=== PATIENT | female | born 1960 | race Hispanic/Latino ===

== ENCOUNTER 2016-09-25 12:19 | Emergency (ER) | payer SELFPAY ==
[2016-09-25] MEDS ORDERED: NACL 0.9% 1000 ML 1,000 ML IV ONE (12:56)
[2016-09-25] MEDS ORDERED: ZOFRAN IV ONE (12:57)
[2016-09-25] MEDS ORDERED: ATIVAN IV ONE (13:02)
--- NOTE | 2016-09-25 13:02 | Emergency Department Report ---
ED Seizure HPI - General Chief Complaint: Headache Stated Complaint: SEIZURE Time Seen by Provider: 09/25/16 12:41 Source: EMS Mode of arrival: Stretcher Limitations: Altered Mental Status - History of Present Illness Initial Comments: mother Stated there are at the bank, the patient is started having seizure, patient does have history of seizure. Also complaining of headache MD Complaint: seizure -: This morning Description of Episode: loss of consciousness, tonic-clonic movement, post- event confusion Witnessed:: Yes Trauma: No Seizure History: known seizure disorder Possible Precipitating Event: none Associated Symptoms: denies: chest pain, confusion, cough, fever/chills, loss of appetite, shortness of breath - Related Data Home Medications Medication Instructions Recorded Confirmed Last Taken Atorvastatin Calcium [Lipitor] 40 mg PO HS 10/29/13 02/03/15 03/20/14 40mg Citalopram [Celexa] 40 mg PO QDAY 10/29/13 02/03/15 03/20/14 40mg Ergocalciferol (Vitamin D2) 50,000 unit PO QWEEK 10/29/13 02/03/15 Unknown [Calciferol] Gabapentin [Neurontin] 600 mg PO TID 10/29/13 02/03/15 03/20/14 600mg Tizanidine HCl [tiZANidine] 4 mg PO BID PRN 10/29/13 02/03/15 03/20/14 4mg Divalproex ER [Depakote ER] 500 mg PO BID 02/03/15 02/03/15 Unknown Fludrocortisone [Florinef] 0.1 mg PO QDAY 02/03/15 02/03/15 Unknown HYDROcodone/APAP 5-325 [Buckeye 1 each PO Q8H PRN 02/03/15 02/03/15 Unknown 5-325 mg TAB] Lactulose 10 gm PO DAILY PRN 02/03/15 02/03/15 Unknown Alendronate Sodium [Fosamax] 70 mg PO QWEEK 02/04/15 02/04/15 Unknown Fluticasone [Flonase] 1 spray NS QDAY 02/04/15 02/04/15 Unknown Previous Rx's Medication Instructions Recorded Last Taken Type Pantoprazole [Protonix TAB] 40 mg PO BID #60 tablet 11/04/13 03/20/14 Rx 40mg Budesoni/Formotero 160-4.5(Nf) 1 puff IH BID 30 Days 02/25/15 Unknown Rx [Symbicort 160-4.5 (Nf)] Clopidogrel [Plavix] 75 mg PO QDAY #30 tablet 02/25/15 Unknown Rx Gabapentin [Neurontin] 600 mg PO Q8H #30 tablet 09/25/16 Unknown Rx Allergies Allergy/AdvReac Type Severity Reaction Status Date / Time aspirin Allergy Unknown Unknown Verified 02/03/15 15:47 adhesive Allergy Unknown Verified 02/03/15 15:47 Penicillins Allergy Rash Verified 02/03/15 15:47 ED Review of Systems ROS: Stated complaint: SEIZURE Other details as noted in HPI Comment: All other systems reviewed and negative Constitutional: denies: chills, fever Respiratory: denies: shortness of breath Cardiovascular: denies: chest pain Gastrointestinal: nausea. denies: abdominal pain, vomiting, diarrhea Neurological: headache. denies: weakness, paresthesias ED Past Medical Hx - Past Medical History Hx Hypertension: Yes Hx CVA: Yes Hx Heart Attack/AMI: No Hx Congestive Heart Failure: No Hx Diabetes: No Hx Deep Vein Thrombosis: No Hx Pulmonary Embolism: No Hx Liver Disease: No Hx Renal Disease: No Hx Sickle Cell Disease: No Hx Arthritis: No Hx Headaches / Migraines: Yes Hx Seizures: Yes (tonic clonic) Hx Kidney Stones: No Hx Asthma: No Hx COPD: Yes Hx Tuberculosis: No Hx Dementia: No Hx HIV: No Additional medical history: hip replacement 2009 right, alzheimers. Anemia, syncope, recent admission. History of GI bleeding. - Surgical History Hx Coronary Stent: No Hx Open Heart Surgery: No Hx Pacemaker: No Hx Internal Defibrillator: No Hx Cholecystectomy: No Hx Appendectomy: No Hx Breast Surgery: No Additional Surgical History: R hip surgery 2009 - Social History Smoking Status: Never Smoker Substance Use Type: None - Medications Home Medications: Home Medications Medication Instructions Recorded Confirmed Last Taken Type Atorvastatin Calcium [Lipitor] 40 mg PO HS 10/29/13 02/03/15 03/20/14 History 40mg Citalopram [Celexa] 40 mg PO QDAY 10/29/13 02/03/15 03/20/14 History 40mg Ergocalciferol (Vitamin D2) 50,000 unit PO QWEEK 10/29/13 02/03/15 Unknown History [Calciferol] Gabapentin [Neurontin] 600 mg PO TID 10/29/13 02/03/15 03/20/14 History 600mg Tizanidine HCl [tiZANidine] 4 mg PO BID PRN 10/29/13 02/03/15 03/20/14 History 4mg Pantoprazole [Protonix TAB] 40 mg PO BID #60 tablet 11/04/13 02/03/15 03/20/14 Rx 40mg Divalproex ER [Depakote ER] 500 mg PO BID 02/03/15 02/03/15 Unknown History Fludrocortisone [Florinef] 0.1 mg PO QDAY 02/03/15 02/03/15 Unknown History HYDROcodone/APAP 5-325 [Buckeye 1 each PO Q8H PRN 02/03/15 02/03/15 Unknown History 5-325 mg TAB] Lactulose 10 gm PO DAILY PRN 02/03/15 02/03/15 Unknown History Alendronate Sodium [Fosamax] 70 mg PO QWEEK 02/04/15 02/04/15 Unknown History Fluticasone [Flonase] 1 spray NS QDAY 02/04/15 02/04/15 Unknown History Budesoni/Formotero 160-4.5(Nf) 1 puff IH BID 30 Days 02/25/15 Unknown Rx [Symbicort 160-4.5 (Nf)] Clopidogrel [Plavix] 75 mg PO QDAY #30 tablet 02/25/15 Unknown Rx Gabapentin [Neurontin] 600 mg PO Q8H #30 tablet 09/25/16 Unknown Rx ED Physical Exam - General Limitations: Altered Mental Status General appearance: in no apparent distress, postictal - Head Head exam: Present: atraumatic, normocephalic - Eye Eye exam: Present: normal appearance - ENT ENT exam: Present: normal exam, normal orophraynx - Neck Neck exam: Present: normal inspection, full ROM. Absent: tenderness, meningismus - Respiratory Respiratory exam: Present: normal lung sounds bilaterally. Absent: respiratory distress, wheezes, rhonchi, chest wall tenderness - Cardiovascular Cardiovascular Exam: Present: regular rate, normal rhythm, normal heart sounds - GI/Abdominal GI/Abdominal exam: Present: soft. Absent: distended, tenderness, guarding, rebound - Extremities Exam Extremities exam: Present: normal inspection. Absent: tenderness - Neurological Exam Neurological exam: Present: alert, oriented X3, CN II-XII intact - Skin Skin exam: Present: warm, normal color ED Course Vital Signs 09/25/16 12:38 Temperature 98.1 F Pulse Rate 92 H Blood Pressure 158/92 - Reevaluation(s) Reevaluation #1: 09/25/16 14:59 Patient instructed baseline she is alert and oriented 3 denied any headache no other complaint at this moment will discharge home to follow-up with her primary care physician. ED Medical Decision Making - Lab Data Result diagrams: 09/25/16 13:06 09/25/16 13:06 Critical care attestation.: If time is entered above; I have spent that time in minutes in the direct care of this critically ill patient, excluding procedure time. ED Disposition Clinical Impression: Seizure, Headache Disposition: DC-01 TO HOME OR SELFCARE Is pt being admited?: No Condition: Stable Prescriptions: Gabapentin [Neurontin] 600 mg PO Q8H #30 tablet Referrals: PRIMARY CARE, [Primary Care Provider] - 3-5 Days
[2016-09-25 13:23] LABS: Basophils % (Auto) 0.6 % (0.0-1.8); Eosinophils % (Auto) 0.5 % (0.0-4.3); Hemoglobin 10.8 gm/dl (10.1-14.3); Mean Corpuscular HGB Conc 33 % (30-34); Mean Corpuscular Hemoglobin 30 pg (28-32); Mean Corpuscular Volume 91 fl (79-97); Platelet Count 411 K/mm3 (140-440); Red Blood Count 3.61 M/mm3 (3.65-5.03); Red Cell Distribution Width 17.4 % (13.2-15.2); White Blood Count 8.1 K/mm3 (4.5-11.0)
[2016-09-25 13:33] LABS: INR 0.92 (0.87-1.13)
[2016-09-25 13:34] LABS: Partial Thromboplastin Time 30.9 Sec. (24.2-36.6)
[2016-09-25 13:42] LABS: Albumin 3.6 g/dL (3.9-5); Albumin/Globulin Ratio 0.9 %; BUN/Creatinine Ratio 9.16; Bilirubin,Total 0.3 mg/dL (0.1-1.2); Calcium 9.3 mg/dL (8.4-10.2); Chloride 95.9 mmol/L (98-107); Potassium 4.9 mmol/L (3.6-5.0); Total Protein 7.8 g/dL (6.3-8.2)
--- NOTE | 2016-09-25 14:17 | Cat Scan Report ---
CT HEAD WITHOUT CONTRAST INDICATION: Seizure. COMPARISON: 02/03/2015. FINDINGS: Noncontrast head CT again demonstrates symmetric, age-appropriate ventricles and sulci with mild periventricular hypodensities. Right greater than left old infarcts about the temporoparieto-occipital junctions again seen measuring up to 2.7 cm on the right, axial image 30, series 4. No definite acute infarct, hemorrhage, mass effect or midline shift. No abnormal extra axial fluid collections. Normal posterior fossa with preserved basilar cisterns. Small bilateral cerebellar lacunar infarcts again seen, measuring up to approximately 7 mm on the left, axial image 10. Symmetric eye globes. Leftward nasal septal bowing. Clear imaged paranasal sinuses and temporal bone/mastoid air cells, though right mastoid tip again noted not pneumatized. Left external auditory canal debris may be directly visualized. Intact calvarium and scalp. Numerous missing teeth and small radiopaque dental material anteriorly incidentally noted. CONCLUSION: No definite acute intracranial CT abnormality or significant interval change, as described. Thank you for the opportunity to participate in this patient's care.
--- NOTE | 2016-09-25 14:45 | XRay Report ---
CHEST 2 VIEWS INDICATION: Headache, altered mental status. COMPARISON: 02/17/2015 FINDINGS: PA and lateral chest radiographs demonstrate better inspiration with normal cardiomediastinal silhouette. Left midlung horizontal atelectasis or scarring with stable old healed multiple left rib deformities. Overall smaller left lung volume as compared to the right. No pleural effusions or CHF. Left hemidiaphragm slightly elevated. Demineralized bones with lower thoracic compression deformity suspected, also described on January [address] report. CONCLUSION: No significant acute chest process with findings, as above. Thank you for the opportunity to participate in this patient's care.
[2016-09-25 15:40] VITALS: BP 100/57
[2016-09-25 16:03] LABS: Urine Drugs of Abuse Note Disclamer
[2016-09-25 16:18] LABS: Bilirubin,Urine NEG (Negative); Blood,Urine NEG (Negative); Ketones,Urine NEG (Negative); Leukocyte Esterase,Urine NEG (Negative); Nitrite,Urine NEG (Negative); Protein,Urine <15 mg/dL mg/dL (Negative); RBC,Urine < 1.0 /HPF (0.0-6.0); Urobilinogen,Urine < 2.0 mg/dL (<2.0); WBC,Urine < 1.0 /HPF (0.0-6.0)
== END 2016-09-25 16:08 | disposition home or self-care (01) ==
LOC: ED 12:19
DX: R56.9 Unspecified convulsions (principal); R51 Headache; I10 Essential (primary) hypertension; J44.9 Chronic obstructive pulmonary disease, unspecified
CPT/HCPCS: 36415; 70450; 71020; 80053; 80307; 81001; 85025; 85610; 85730; 93005; 93010; 96361; 96374; 96375; 99285; J2060; J2405; J7030

== ENCOUNTER 2017-11-22 17:12 | Emergency (ER) | payer MEDICARE ==
[2017-11-22] MEDS ORDERED: ATIVAN IV ONE (17:55)
[2017-11-22] MEDS ORDERED: FIORICET PO ONE (17:55)
--- NOTE | 2017-11-22 18:00 | Emergency Department Report ---
HPI - General Chief Complaint: Seizure Time Seen by Provider: 11/22/17 17:49 - HPI HPI: Room 18 The patient is a 57-year-old female presenting with a chief complaint of seizure. The patient was walking out of a store with her mother when she fell and had a generalized tonic-clonic seizure. The mother reports the patient fell striking her head. Patient only complains of a headache and gives a score of 10/10. Patient denies any other complaints. Patient states she has been compliant with her Depakote. The patient's last seizure before today occurred in July 2017. Location: Head, [employer] Duration: [See above] Quality: Headache Severity: 10/10 Modifying factors: [see above] Context: [see above] Mode of transportation: [not driving] ED Past Medical Hx - Past Medical History Previous Medical History?: Yes Hx Hypertension: Yes Hx CVA: Yes Hx Headaches / Migraines: Yes Hx Seizures: Yes (tonic clonic) Hx COPD: Yes Additional medical history: hip replacement 2009 right, alzheimers. Anemia, syncope, recent admission. History of GI bleeding. - Surgical History Past Surgical History?: Yes Additional Surgical History: R hip surgery 2008 - Family History Family history: no significant - Social History Smoking Status: Former Smoker (none 10 years) Substance Use Type: None - Medications Home Medications: Home Medications Medication Instructions Recorded Confirmed Last Taken Type Acetaminophen [Tylenol] 500 mg PO Q6HR 11/14/16 11/14/16 Unknown History Alendronate Sodium [Fosamax] 70 mg PO QWEEK 11/14/16 11/14/16 Unknown History Erythromycin Base [Erythromycin] 250 mg PO TID 11/14/16 11/14/16 Unknown History Furosemide [Lasix TAB] 40 mg PO QDAY 11/14/16 11/14/16 Unknown History Gabapentin [Neurontin] 600 mg PO Q8H 11/14/16 11/14/16 Unknown History Lisinopril [Zestril TAB] 40 mg PO QDAY 11/14/16 11/14/16 Unknown History Loratadine [Claritin] 10 mg PO DAILY 11/14/16 11/14/16 Unknown History Meloxicam 15 mg PO QDAY 11/14/16 11/14/16 Unknown History Metoprolol Tartrate 25 mg PO BID 11/14/16 11/14/16 Unknown History Potassium Chloride [K-Tab ER] 10 meq PO QDAY 11/14/16 11/14/16 Unknown History SUMAtriptan succinate [SUMAtriptan 25 mg PO QDAY 11/14/16 11/14/16 Unknown History Succinate] amLODIPine [Norvasc] 5 mg PO DAILY 11/14/16 11/14/16 Unknown History AtorvaSTATin [Lipitor] 40 mg PO QHS #30 tablet 11/25/16 Unknown Rx Bisacodyl [Dulcolax suppos] 10 mg [place] QDAY PRN #30 supp.rect 11/25/16 Unknown Rx Citalopram [Celexa] 40 mg PO QDAY #30 tablet 11/25/16 Unknown Rx Clopidogrel Bisulfate [Plavix] 75 mg PO QDAY #30 tablet 11/25/[address] [Depakote Dr] 500 mg PO BID #60 tablet 11/25/16 Unknown Rx Erythromycin Base [Lito-Tab] 250 mg PO TID #90 tablet 11/25/16 Unknown Rx Ferrous Sulfate [Feosol 325 MG tab] 325 mg PO BID #60 tablet 11/25/16 Unknown Rx Fluticasone [Flonase] 1 spray NS QDAY #1 bottle 11/25/16 Unknown Rx Gabapentin [Neurontin] 600 mg PO Q8H #90 capsule 11/25/16 Unknown Rx Pantoprazole [Protonix TAB] 40 mg PO BID #60 tablet 11/25/16 Unknown Rx oxyCODONE /ACETAMINOPHEN [Percocet 1 tab PO Q6H PRN #30 tablet 11/25/16 Unknown Rx 5/325 mg] Butalb/Acetamin/Caff 50-325-40 1 tab PO Q8HR PRN #10 tablet 11/22/17 Unknown Rx [Fioricet] ED Review of Systems ROS: Stated complaint: SEIZURE Other details as noted in HPI Constitutional: no symptoms reported Eyes: denies: eye pain ENT: denies: throat pain Respiratory: no symptoms reported Cardiovascular: denies: chest pain Endocrine: no symptoms reported Gastrointestinal: denies: abdominal pain Genitourinary: denies: dysuria Musculoskeletal: denies: back pain Neurological: headache, other (seizure) Physical Exam - Physical Exam Vital Signs: Vital Signs 11/22/17 17:38 Temperature 98.3 F Pulse Rate 66 Respiratory 16 Rate Blood Pressure 149/63 O2 Sat by Pulse 99 Oximetry Physical Exam: GENERAL: The patient is well-developed well-nourished female lying on stretcher not appearing to be in acute distress. [] HEENT: Normocephalic. Atraumatic. Extraocular motions are intact. Patient has moist mucous membranes. NECK: Supple. Trachea midline CHEST/LUNGS: Clear to auscultation. There is no respiratory distress noted. HEART/CARDIOVASCULAR: Regular. There is no tachycardia. There is no gallop rub or murmur. ABDOMEN: Abdomen is soft, nontender. Patient has normal bowel sounds. There is no abdominal distention. SKIN: There is no rash. There is no edema. There is no diaphoresis. NEURO: The patient is awake, alert, and oriented. The patient is cooperative. The patient has no focal neurologic deficits. The patient has normal speech. Cranial nerves II through XII grossly intact, no drift MUSCULOSKELETAL:There is no evidence of acute injury. ED Course Vital Signs 11/22/17 17:38 Temperature 98.3 F Pulse Rate 66 Respiratory 16 Rate Blood Pressure 149/63 O2 Sat by Pulse 99 Oximetry ED Medical Decision Making - Lab Data Result diagrams: 11/22/17 17:48 11/22/17 17:48 Laboratory Tests 11/22/17 11/22/17 11/22/17 17:48 17:48 18:12 WBC 5.2 RBC 3.42 L Hgb 10.5 Hct 31.9 MCV 94 MCH 31 MCHC 33 RDW 17.5 H Plt Count 148 Sodium 134 L Potassium 4.3 Chloride 102.9 Carbon Dioxide 22 Anion Gap 13 BUN 13 Creatinine 0.8 Estimated GFR > 60 BUN/Creatinine Ratio 16 Glucose 83 Calcium 8.4 Valproic Acid 75.2 - Radiology Data Radiology results: report reviewed (CT head, CT cervical spine), image reviewed (CT head, CT cervical spine) [facility] [address] [place] [address] Cat Scan Report Signed Patient: PATI GIBSON MR#: [id number] : 1959 Acct:[id number] Age/Sex: 57 / F ADM Date: 11/22/17 Loc: ED Attending Dr: Ordering Physician: FRANCESCA SANCHEZ MD Date of Service: 11/22/17 Procedure(s): CT head/brain wo con Accession Number(s): [id number] cc: FRANCESCA SANCHEZ MD FINAL REPORT EXAM: CT HEAD/BRAIN WO CON HISTORY: seizure; s/p fall w/ c/o headache TECHNIQUE : 2.5 millimeter axial images from the skullbase to the vertex. Comparison: Head CT dated September 25, 2016 FINDINGS: There is no evidence of an acute intracranial process, intracranial hemorrhage or mass effect. There are chronic infarcts in the right parietal lobe, left occipital lobe and left cerebellum similar in appearance to the previous study. The ventricles are normal size. The visualized portions of the orbits, paranasal and mastoid sinuses are unremarkable. There is no evidence of fracture. IMPRESSION: 1. No evidence of an acute intracranial process, intracranial hemorrhage or mass effect. 2. No evidence of fracture. Transcribed By: ED Dictated By: FRED CASTANEDA MD Electronically Authenticated By: FRED CASTANEDA MD Signed Date/Time: 03/11 DD/ 39 TD/TT: 11/22/172039 [place] [address] Cat Scan Report Signed Patient: PATI GIBSON MR#: [id number] : 1959 Acct:[id number] Age/Sex: 57 / F ADM Date: 11/22/17 Loc: ED Attending Dr: Ordering Physician: FRANCESCA SANCHEZ MD Date of Service: 11/22/17 Procedure(s): CT cervical spine wo con Accession Number(s): [id number] cc: FRANCESCA SANCHEZ MD FINAL REPORT EXAM: CT CERVICAL SPINE WO CON HISTORY: seizure; s/p fall w/ c/o headache TECHNIQUE: Axial helical imaging through the cervical spine with sagittal and coronal reformatted images obtained. Comparison: CT cervical spine dated February 03, 2015 FINDINGS: There straightening of the normal lordotic curve of the cervical spine. The vertebral heights are maintained. There is loss of height of the C6-C7 disc with associated degenerative endplate change. There is multiple level degenerative facet change. There is no evidence of significant bony canal stenosis. Visualization detail of the contents of the cervical canal is limited by artifact. There is no evidence of fracture or subluxation. The paraspinous soft tissues are unremarkable. There is atherosclerotic vascular calcification at the carotid bifurcation bilaterally. IMPRESSION: 1. No evidence of fracture or subluxation. 2. Cervical spondylosis. 3. Atherosclerotic vascular calcification carotid bifurcation. Transcribed By: ED Dictated By: FRED CASTANEDA MD Electronically Authenticated By: FRED CASTANEDA MD Signed Date/Time: 11/22/172044 DD/ 44 TD/TT: 11/22/172044 - Differential Diagnosis seizure, closed head injury, ICH Critical care attestation.: If time is entered above; I have spent that time in minutes in the direct care of this critically ill patient, excluding procedure time. ED Disposition Clinical Impression: Seizure, Closed head injury Disposition: TO HOME OR SELFCARE Is pt being admited?: No Does the pt Need Aspirin: No Condition: Stable Instructions: Epilepsy (ED), Minor Head Injury (ED) Additional Instructions: Return to the emergency department immediately should you develop worsening symptoms, fever, inability to tolerate food or liquid or any other concerns. Prescriptions: Butalb/Acetamin/Caff 50-325-40 [Fioricet] 1 tab PO Q8HR PRN #10 tablet PRN Reason: Headache Referrals: PRIMARY CAREMD [Primary Care Provider] - 3-5 Days Time of Disposition: 21:02
[2017-11-22 18:52] LABS: Hematocrit 31.9 % (30.3-42.9); Hemoglobin 10.5 gm/dl (10.1-14.3); Mean Corpuscular HGB Conc 33 % (30-34); Mean Corpuscular Hemoglobin 31 pg (28-32); Mean Corpuscular Volume 94 fl (79-97); Platelet Count 148 K/mm3 (140-440); Red Blood Count 3.42 M/mm3 (3.65-5.03); Red Cell Distribution Width 17.5 % (13.2-15.2)
[2017-11-22 19:18] LABS: BUN/Creatinine Ratio 16; Blood Urea Nitrogen 13 mg/dL (7-17); Calcium 8.4 mg/dL (8.4-10.2); Hemolysis Index 2
--- NOTE | 2017-11-22 20:41 | Cat Scan Report ---
FINAL REPORT EXAM: CT HEAD/BRAIN WO CON HISTORY: seizure; s/p fall w/ c/o headache TECHNIQUE: 2.5 millimeter axial images from the skullbase to the vertex. Comparison: Head CT dated September 25, 2016 FINDINGS: There is no evidence of an acute intracranial process, intracranial hemorrhage or mass effect. There are chronic infarcts in the right parietal lobe, left occipital lobe and left cerebellum similar in appearance to the previous study. The ventricles are normal size. The visualized portions of the orbits, paranasal and mastoid sinuses are unremarkable. There is no evidence of fracture. IMPRESSION: 1. No evidence of an acute intracranial process, intracranial hemorrhage or mass effect. 2. No evidence of fracture.
--- NOTE | 2017-11-22 20:46 | Cat Scan Report ---
FINAL REPORT EXAM: CT CERVICAL SPINE WO CON HISTORY: seizure; s/p fall w/ c/o headache TECHNIQUE: Axial helical imaging through the cervical spine with sagittal and coronal reformatted images obtained. Comparison: CT cervical spine dated February 03, 2015 FINDINGS: There straightening of the normal lordotic curve of the cervical spine. The vertebral heights are maintained. There is loss of height of the C6-C7 disc with associated degenerative endplate change. There is multiple level degenerative facet change. There is no evidence of significant bony canal stenosis. Visualization detail of the contents of the cervical canal is limited by artifact. There is no evidence of fracture or subluxation. The paraspinous soft tissues are unremarkable. There is atherosclerotic vascular calcification at the carotid bifurcation bilaterally. IMPRESSION: 1. No evidence of fracture or subluxation. 2. Cervical spondylosis. 3. Atherosclerotic vascular calcification carotid bifurcation.
[2017-11-22 21:04] VITALS: BP 127/64
== END 2017-11-22 21:35 | disposition home or self-care (01) ==
LOC: ED 17:12
DX: R56.9 Unspecified convulsions (principal); S09.90XA Unspecified injury of head, initial encounter; I10 Essential (primary) hypertension; G43.909 Migraine, unspecified, not intractable, without status migrainosus; Z86.73 Personal history of transient ischemic attack (TIA), and cerebral infarction without residual deficits; J44.9 Chronic obstructive pulmonary disease, unspecified; Z87.891 Personal history of nicotine dependence; Z88.6 Allergy status to analgesic agent; Z88.0 Allergy status to penicillin; Z88.8 Allergy status to other drugs, medicaments and biological substances; Z91.048 Other nonmedicinal substance allergy status; W01.0XXA Fall on same level from slipping, tripping and stumbling without subsequent striking against object, initial encounter; Y93.89 Activity, other specified; Y92.512 Supermarket, store or market as the place of occurrence of the external cause; Y99.8 Other external cause status
CPT/HCPCS: 36415; 70450; 72125; 80048; 80164; 85027; 96374; 99285; J2060

== ENCOUNTER 2018-05-23 13:37 | Emergency (ER) | payer MEDICARE ==
[2018-05-23] MEDS ORDERED: KEPPRA 1,000 MG/NS 0.75% 100ML 1,000 MG/100 ML BAG IV ONE (16:12)
--- NOTE | 2018-05-23 16:17 | Emergency Department Report ---
HPI - General Chief Complaint: Seizure Time Seen by Provider: 05/23/18 16:11 - HPI HPI: 58-year-old -[place] female presents to the emergency department via EMS from home after she had a witnessed seizure about 30 minutes prior to arrival. Patient does have a seizure history and says that her last seizure may have been a few days ago. She is unsure of the name of the medication she takes for her seizures but says that she takes them compliantly. Previous records list this medication as Depakote. The patient was trying to take care of her mother who was difficult to arouse and was having some type of unresponsive episode and the mother is currently being seen here as a patient in a separate room. The patient called one of her neighbors to come over and assist her with her mother and this neighbor's who witnessed the patient's seizure. She has a history of tonic clonic seizures. She also has a history of a previous TIA, migraine headaches, hypertension, panic attacks and questionable COPD. Patient's primary care is [facility]. ED Past Medical Hx - Past Medical History Previous Medical History?: Yes Hx Hypertension: Yes Hx CVA: Yes Hx Heart Attack/AMI: No Hx Congestive Heart Failure: No Hx Diabetes: No Hx Deep Vein Thrombosis: No Hx Pulmonary Embolism: No Hx Liver Disease: No Hx Renal Disease: No Hx Sickle Cell Disease: No Hx Arthritis: No Hx Headaches / Migraines: Yes Hx Seizures: Yes (tonic clonic) Hx Kidney Stones: No Hx Psychiatric Treatment: Yes (panic attacks) Hx Asthma: No Hx COPD: Yes Hx Tuberculosis: No Hx Dementia: No Hx HIV: No Additional medical history: hip replacement 2009 right, alzheimers. Anemia, syncope, recent admission. History of GI bleeding - Surgical History Past Surgical History?: Yes Hx Coronary Stent: No Hx Open Heart Surgery: No Hx Pacemaker: No Hx Internal Defibrillator: No Hx Cholecystectomy: No Hx Appendectomy: No Hx Breast Surgery: No Additional Surgical History: R hip surgery 2009 - Social History Smoking Status: Former Smoker Substance Use Type: None - Medications Home Medications: Home Medications Medication Instructions Recorded Confirmed Last Taken Type Acetaminophen [Tylenol] 500 mg PO Q6HR 11/14/16 05/23/18 Unknown History Alendronate Sodium [Fosamax] 70 mg PO QWEEK 11/14/16 05/23/18 Unknown History Erythromycin Base [Erythromycin] 250 mg PO TID 11/14/16 05/23/18 Unknown History Furosemide [Lasix TAB] 40 mg PO QDAY 11/14/16 05/23/18 Unknown History Gabapentin [Neurontin] 600 mg PO Q8H 11/14/16 05/23/18 Unknown History Lisinopril [Zestril TAB] 40 mg PO QDAY 11/14/16 05/23/18 Unknown History Loratadine [Claritin] 10 mg PO DAILY 11/14/16 05/23/18 Unknown History Meloxicam 15 mg PO QDAY 11/14/16 05/23/18 Unknown History Metoprolol Tartrate 25 mg PO BID 11/14/16 05/23/18 Unknown History Potassium Chloride [K-Tab ER] 10 meq PO QDAY 11/14/16 05/23/18 Unknown History SUMAtriptan succinate [SUMAtriptan 25 mg PO QDAY 11/14/16 05/23/18 Unknown History Succinate] amLODIPine [Norvasc] 5 mg PO DAILY 11/14/16 05/23/18 Unknown History AtorvaSTATin [Lipitor] 40 mg PO QHS #30 tablet 11/25/16 05/23/18 Unknown Rx Bisacodyl [Dulcolax suppos] 10 mg CA QDAY PRN #30 supp.rect 11/25/16 05/23/18 Unknown Rx Citalopram [Celexa] 40 mg PO QDAY #30 tablet 11/25/16 05/23/18 Unknown Rx Clopidogrel Bisulfate [Plavix] 75 mg PO QDAY #30 tablet 11/25/16 05/23/18 Unknown Rx Divalproex [Shelby Noel] 500 mg PO BID #60 tablet 11/25/16 05/23/18 Unknown Rx Erythromycin Base [Lito-Tab] 250 mg PO TID #90 tablet 11/25/16 05/23/18 Unknown Rx Ferrous Sulfate [Feosol 325 MG tab] 325 mg PO BID #60 tablet 11/25/16 05/23/18 Unknown Rx Fluticasone [Flonase] 1 spray NS QDAY #1 bottle 11/25/16 05/23/18 Unknown Rx Gabapentin [Neurontin] 600 mg PO Q8H #90 capsule 11/25/16 05/23/18 Unknown Rx Pantoprazole [Protonix TAB] 40 mg PO BID #60 tablet 11/25/16 05/23/18 Unknown Rx oxyCODONE /ACETAMINOPHEN [Percocet 1 tab PO Q6H PRN #30 tablet 11/25/16 05/23/18 Unknown Rx 5/325 mg] Butalb/Acetamin/Caff 50-325-40 1 tab PO Q8HR PRN #10 tablet 11/22/17 05/23/18 Unknown Rx [Fioricet] ED Review of Systems ROS: Stated complaint: SEIZURE Other details as noted in HPI Comment: All other systems reviewed and negative Constitutional: denies: chills, fever Eyes: denies: eye pain, vision change ENT: denies: ear pain, throat pain Respiratory: denies: cough, shortness of breath Cardiovascular: denies: chest pain, palpitations Gastrointestinal: denies: abdominal pain, vomiting Genitourinary: denies: dysuria, discharge Musculoskeletal: denies: back pain, arthralgia Skin: denies: rash, lesions Neurological: other (seizure). denies: weakness, numbness Physical Exam - Physical Exam Vital Signs: Vital Signs 05/23/18 15:15 Temperature 98.4 F Pulse Rate 74 Respiratory 18 Rate Blood Pressure 135/83 [Right] O2 Sat by Pulse 97 Oximetry Physical Exam: GENERAL: The patient is well-developed well-nourished. HEENT: Normocephalic. Atraumatic. Patient has moist mucous membranes. EYES: Extraocular motions are intact. Pupils are equal and reactive to light bilaterally. There is some fatigable horizontal nystagmus. NECK: Supple. Trachea is midline. CHEST/LUNGS: Clear to auscultation. There is no respiratory distress noted. HEART/CARDIOVASCULAR: Regular. There is no tachycardia. There is no obvious murmur. ABDOMEN: Abdomen is soft, nontender. Patient has normal bowel sounds. There is no abdominal distention. SKIN: Skin is warm and dry. NEURO: The patient is awake, alert, and oriented. The patient is cooperative. The patient has no focal neurologic deficits. The patient has normal speech. Cranial nerves II through XII grossly intact. No pronator drift. No dysmetria. MUSCULOSKELETAL: There is no tenderness or deformity. There is no limitation range of motion. There is no evidence of acute injury. ED Course Vital Signs 05/23/18 15:15 Temperature 98.4 F Pulse Rate 74 Respiratory 18 Rate Blood Pressure 135/83 [Right] O2 Sat by Pulse 97 Oximetry ED Medical Decision Making - Lab Data Result diagrams: 05/23/18 17:18 05/23/18 17:18 - EKG Data -: EKG Interpreted by Me EKG shows normal: sinus rhythm, axis, intervals, QRS complexes, ST-T waves Rate: normal - EKG Data When compared to previous EKG there are: previous EKG unavailable Interpretation: normal EKG - Medical Decision Making Patient presents to the emergency department after having a witnessed seizure. The patient has a seizure history. She was loaded with Keppra but I was also able to see from previous charts that the patient is on Depakote. Her Depakote level was checked and is subtherapeutic which may also be the reason for her seizure. Since being in the emergency department she has been awake, alert and has been no further seizure-like activity. She does not have any focal, motor or sensory deficits and her cranial nerves have been intact. Since there has been no further seizure-like activity and she does have a seizure history, and since she has remained awake and alert, I did not feel that we needed any CT imaging of the head at this time. Patient's labs have been unremarkable. EKG has not shown any signs of ST elevation NC, ischemia or dysrhythmia. The patient was seen by the case management team who, along with the family, feel that the patient is not safe to go back to her home as it is in an inhabitable condition. Case management will continue to assist with discharge planning. - Differential Diagnosis epilepsy, TIA, dysrhythmia, hypoglycemia Critical Care Time: No Critical care attestation.: If time is entered above; I have spent that time in minutes in the direct care of this critically ill patient, excluding procedure time. ED Disposition Clinical Impression: Seizure disorder, Seizure secondary to subtherapeutic anticonvulsant medication Disposition: DC-01 TO HOME OR SELFCARE Is pt being admited?: No Condition: Stable Instructions: Epilepsy (ED), Recurrent Seizures Adult (ED) Additional Instructions: Please follow up with her primary care physician in the next few days. I am also giving you a referral for a local neurologist, Dr. Correa, to follow up regarding her seizure disorder. Continue taking your antiepileptic/seizure medication. Return to the emergency department with any further seizure-like activity, worsening of symptoms, any acute distress. Referrals: CARLITOS SANTIAGO [Other] - SAMEER AVILA MD [Staff Physician] - 3-5 Days Time of Disposition: 00:12
[2018-05-23 17:35] LABS: Basophils % (Auto) 0.6 % (0.0-1.8); Eosinophils % (Auto) 0.6 % (0.0-4.3); Hematocrit 39.1 % (30.3-42.9); Lymphocytes # (Auto) 1.2 K/mm3 (1.2-5.4); Lymphocytes % (Auto) 25.2 % (13.4-35.0); Mean Corpuscular HGB Conc 33 % (30-34); Mean Corpuscular Volume 97 fl (79-97); Monocytes # (Auto) 0.4 K/mm3 (0.0-0.8); Monocytes % (Auto) 8.4 % (0.0-7.3); Platelet Count 197 K/mm3 (140-440); Red Blood Count 4.04 M/mm3 (3.65-5.03); Red Cell Distribution Width 15.9 % (13.2-15.2)
[2018-05-23 17:52] LABS: Alanine Aminotransferase 15 units/L (7-56); Albumin 3.7 g/dL (3.9-5); BUN/Creatinine Ratio 7; Blood Urea Nitrogen 5 mg/dL (7-17); Calcium 9.3 mg/dL (8.4-10.2); Hemolysis Index 9
[2018-05-23 20:06] LABS: Bilirubin,Urine NEG (Negative); Blood,Urine SM (Negative); Color,Urine Amber (Yellow); Hyaline Casts,Urine 1 /LPF; Mucus,Urine FEW /HPF; Protein,Urine <15 mg/dL mg/dL (Negative)
[2018-05-23 20:32] LABS: Amphetamine Screen,Urine PRESUMPTIVE NEGATIVE; Benzodiazepines Screen,Urine PRESUMPTIVE NEGATIVE; Cannabinoid Screen,Urine PRESUMPTIVE NEGATIVE; Cocaine Screen,Urine PRESUMPTIVE NEGATIVE; Methadone Screen,Urine PRESUMPTIVE NEGATIVE; Opiate Screen,Urine PRESUMPTIVE NEGATIVE
[2018-05-24] MEDS ORDERED: FIORICET PO ONE ×2 (16:17→23:49)
[2018-05-25 11:45] VITALS: BP 111/73
--- NOTE | 2018-05-25 12:03 | Emergency Department Report ---
Blank Doc - Documentation Documentation: I have reconciled this patient's home medications at this time. Patient does not need erythromycin this is an old order. Also patient's oxycodone will need to be ordered by primary care physician. Did not see a condition at this time the warrants long-term pain management. Patient is stable for discharge and please give medications they have been prescribed by Dr. Monteiro
== END 2018-05-25 11:55 | disposition other institution (70) ==
LOC: ED 13:37
DX: G40.509 Epileptic seizures related to external causes, not intractable, without status epilepticus (principal)
CPT/HCPCS: 36415; 80053; 80164; 80307; 81001; 82550; 84484; 85025; 93005; 93010; 96365; 99284; G0480; J1953; 80320